=== PATIENT | male | born 1945 | race Caucasian/White ===

== ENCOUNTER → 2016-11-03 | Outpatient (CLI) | payer MEDICARE, BC, OTHER ==
[~2016-11-03] VITALS: Ht 182.9 cm; Wt 106.6 kg
[~2016-11-03] MED LIST: ASPI1TAB PO; FISH1000 PO; FLAX1000 PO; FLEC25TA PO; LIDOCAINE 2% INJ 100 MG/5 ML SDV (FOR ANES.) As Ordered ONE; NS 1,000 ML IV ONE; PRAD150C PO; PROPOFOL 500 MG/50 ML VIAL As Ordered ONE
--- NOTE | 2016-11-03 10:59 | ROOR ---
Patient Name: Basim Wang Procedure Date: 11/03/2016 10:23 AM Date of : 1945 Age: 71 Room: [facility] Gender: Male Note Status: Finalized Procedure: Total Colonoscopy to Cecum + Cold Snare Polypectomy Indications: High risk colon cancer surveillance: Personal history of colonic polyps, Last colonoscopy: 2011 Providers: Nikolas Dueñas MD Referring MD: Chen BAKER MD Requesting Provider: Medicines: Monitored Anesthesia Care Complications: No immediate complications. Procedure: Pre-Anesthesia Assessment: - The heart rate, respiratory rate, oxygen saturations, blood pressure, adequacy of pulmonary ventilation, and response to care were monitored throughout the procedure. The Colonoscope was introduced through the anus and advanced to the cecum, identified by appendiceal orifice and ileocecal valve. The colonoscopy was performed without difficulty. The patient tolerated the procedure well. The quality of the bowel preparation was good. Findings: The perianal and digital rectal examinations were normal. Non-bleeding internal hemorrhoids were found during retroflexion. The hemorrhoids were small and Grade I (internal hemorrhoids that do not prolapse). Multiple small and large-mouthed diverticula were found in the recto-sigmoid colon, sigmoid colon and descending colon. A small polyp was found in the ascending colon. The polyp was sessile. The polyp was removed with a cold snare. Resection and retrieval were complete. The exam was otherwise without abnormality on direct and retroflexion views. Impression: - Non-bleeding internal hemorrhoids. - Diverticulosis in the recto-sigmoid colon, in the sigmoid colon and in the descending colon. - One small polyp in the ascending colon, removed with a cold snare. Resected and retrieved. - The examination was otherwise normal on direct and retroflexion views. - The exam was otherwise normal to the cecum. Recommendation: - Patient has a contact number available for emergencies. The signs and symptoms of potential delayed complications were discussed with the patient. Return to normal activities tomorrow. Written discharge instructions were provided to the patient. - High fiber diet. - Discharge patient to home. - Continue present medications. - Await pathology results. - Telephone GI clinic for pathology results in 1 week. - Repeat colonoscopy for symptoms only. - Return to referring physician. - The findings and recommendations were discussed with the patient's family. Nikolas Dueñas MD Nikolas Dueñas MD 11/03/2016 10:59:08 AM This report has been signed electronically. Number of Addenda: 0 Note Initiated On: 11/03/2016 10:23 AM Estimated Blood Loss: Estimated blood loss: none.
[2016-11-03 11:19] VITALS: BP 104/77
== END | disposition home or self-care (01) ==
LOC: M OPP 09:42
PROVIDERS: ATTEND Internal Medicine Gastroenterology
DX: Z12.11 Encounter for screening for malignant neoplasm of colon (principal); K64.0 First degree hemorrhoids; K57.30 Diverticulosis of large intestine without perforation or abscess without bleeding; K63.5 Polyp of colon; I48.91 Unspecified atrial fibrillation; F33.9 Major depressive disorder, recurrent, unspecified; G47.30 Sleep apnea, unspecified; F17.290 Nicotine dependence, other tobacco product, uncomplicated; Z79.82 Long term (current) use of aspirin; J30.89 Other allergic rhinitis

== ENCOUNTER 2016-12-15 06:00 | Day surgery (SDC) | payer MEDICARE, BC, OTHER ==
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
[~2016-12-15] VITALS: Ht 185.4 cm; Wt 109.8 kg
[~2016-12-15 06:00] MED LIST changes: -LIDOCAINE 2% INJ 100 MG/5 ML SDV (FOR ANES.) As Ordered ONE; -NS 1,000 ML IV ONE; -PROPOFOL 500 MG/50 ML VIAL As Ordered ONE
[2016-12-15] MEDS ORDERED: LR 500 ML IV SCH (06:15)
[2016-12-15] MEDS ORDERED: LIDOCAINE PRES-FREE 2% 10ML AMP As Ordered ONE (06:20)
[2016-12-15] MEDS: TETRACAINE 0.5% OPHTH SOLN 4ML As Ordered ONE ×2 (06:21→07:47)
[2016-12-15] MEDS ORDERED: LIDOCAINE 2% MDV 20 ML VIAL As Ordered ONE (06:21)
[2016-12-15] MEDS ORDERED: TOBRADEX OPHTH OINT 3.5 GM As Ordered ONE (06:21)
[2016-12-15] MEDS ORDERED: POVIDONE-IODINE 5% OPHTH PREP SOL 30ML As Ordered ONE (06:21)
[2016-12-15] MEDS ORDERED: LIDOCAINE 3.5 % 1ML OPHTH TOPICAL GEL OU ONE (07:00)
[2016-12-15] MEDS ORDERED: LIDOCAINE 2% W/EPIN INJ 20ML **PRES FREE As Ordered ONE (07:25)
[2016-12-15] MEDS ORDERED: LIDOCAINE 2% INJ 100 MG/5 ML SDV (FOR ANES.) As Ordered ONE (07:38)
[2016-12-15] MEDS ORDERED: MIDAZOLAM INJ 2 MG/2 ML VIAL (J2250) As Ordered ONE (07:38)
[2016-12-15] MEDS ORDERED: PROPOFOL 200 MG/20 ML VIAL As Ordered ONE (07:38)
[2016-12-15] MEDS ORDERED: fentaNYL 100 MCG/2 ML INJECTION (J3010) As Ordered ONE (07:52)
[2016-12-15] MEDS ORDERED: diphenhydrAMINE INJ 50MG/ML VIAL (J1200) As Ordered ONE ×2 (08:01→08:02)
[2016-12-15 08:40] VITALS: BP 111/68
--- NOTE | 2016-12-16 14:04 | RO ---
DATE OF OPERATION: 12/15/2016 PREOPERATIVE DIAGNOSES: Dermatochalasis and ptosis, both eyes. POSTOPERATIVE DIAGNOSES: Dermatochalasis and ptosis, both eyes. PROCEDURE: Bilateral blepharoplasty with ptosis repair. Preoperative marginal reflex distance (MRD) was -1 mm and levator function was 12-15 mm. SURGEON: Alethea Garcia MD DISCOUNT CLERK: None. COMPLICATIONS: None. ANESTHESIA: Local intravenous (IV) standby. DESCRIPTION OF PROCEDURE: Procedure in detail: The patient was brought to the operating room and laid in supine position. The upper face was prepped and draped in a sterile fashion for bilateral lid surgery. Both upper lids were marked with the help of the sterile marker, following which the subcutaneous injection of 2% lidocaine with 1:100,000 epinephrine was given. Premarked areas were then excised with the help of the cautery. Hemostasis obtained as necessary. Attention was first diverted to the right eye after the elliptical portion of the skin was excised, hemostasis was obtained, and any prolapsed fat was then excised. Levator aponeurosis was identified and was noticed to be dehisced, and it was reattached using 6-0 nylon suture. Following this, the skin was closed using 6-0 plain gut in a running fashion. The exact same procedure was repeated for the left eye. At the end of the case, ice was applied, and the patient returned to recovery room in stable condition.
== END 2016-12-15 09:17 | disposition home or self-care (01) ==
LOC: M SDC 06:00
PROVIDERS: ATTEND Ophthalmology
DX: H02.834 Dermatochalasis of left upper eyelid (principal); H02.831 Dermatochalasis of right upper eyelid; H02.403 Unspecified ptosis of bilateral eyelids; I48.91 Unspecified atrial fibrillation; K57.30 Diverticulosis of large intestine without perforation or abscess without bleeding; K64.9 Unspecified hemorrhoids; M51.9 Unspecified thoracic, thoracolumbar and lumbosacral intervertebral disc disorder; R06.83 Snoring; G47.33 Obstructive sleep apnea (adult) (pediatric); N40.0 Benign prostatic hyperplasia without lower urinary tract symptoms; J30.2 Other seasonal allergic rhinitis; I10 Essential (primary) hypertension; E78.5 Hyperlipidemia, unspecified; R91.8 Other nonspecific abnormal finding of lung field; K76.89 Other specified diseases of liver; Z79.899 Other long term (current) drug therapy; Z79.82 Long term (current) use of aspirin; Z86.010 Personal history of colon polyps
CPT/HCPCS: 15823; 88302; J1200; J2250; J3010

== ENCOUNTER → 2017-09-09 | Outpatient (REF) | payer MEDICARE, BC, OTHER ==
[2017-09-09 12:25] LABS: PARTIAL THROMBOPLASTIN TIME 34.8 SECONDS (26.8-37.9); PROTHROMBIN TIME 14.4 SECONDS (12.4-14.5)
== END ==
LOC: M LAB REF 11:55
DX: Z01.812 Encounter for preprocedural laboratory examination (principal); Z79.01 Long term (current) use of anticoagulants; R79.9 Abnormal finding of blood chemistry, unspecified
CPT/HCPCS: 85610

== ENCOUNTER 2017-09-17 12:22 | Emergency (ER) | payer MEDICARE, BC, OTHER | END 2017-09-17 15:22 | disposition home or self-care (01) | LOC: M ED 12:22 | DX: R31.9 Hematuria, unspecified (principal); R33.9 Retention of urine, unspecified; Z96.0 Presence of urogenital implants; I25.10 Atherosclerotic heart disease of native coronary artery without angina pectoris; Z79.899 Other long term (current) drug therapy; Z79.82 Long term (current) use of aspirin; Z79.01 Long term (current) use of anticoagulants; J30.89 Other allergic rhinitis | CPT/HCPCS: 99283 ==

== ENCOUNTER 2017-09-25 20:07 | Emergency (ER) | payer MEDICARE, BC, OTHER | END 2017-09-25 21:54 | disposition home or self-care (01) | LOC: M ED 20:07 | DX: I80.01 Phlebitis and thrombophlebitis of superficial vessels of right lower extremity (principal); Z98.890 Other specified postprocedural states; I48.91 Unspecified atrial fibrillation; J30.9 Allergic rhinitis, unspecified; F17.200 Nicotine dependence, unspecified, uncomplicated; Z79.01 Long term (current) use of anticoagulants; Z79.82 Long term (current) use of aspirin | CPT/HCPCS: 93971 ==

== ENCOUNTER 2018-06-01 05:57 | Day surgery (SDC) | payer MEDICARE, BC, OTHER ==
[~2018-06-01] VITALS: Ht 185.4 cm; Wt 108.9 kg
[~2018-06-01 05:57] MED LIST changes: +ALFU10TA2; +CEPH500C; +COQ-100C2 PO; +DOCU100C16; +ELIQ5TAB; +ELIQ5TAB PO; -FLAX1000 PO; +FLAX10008 PO; +HYDR-3713; +MULT1TAB10 PO; +NAPR-50 PO; +VITA400C7 PO
[2018-06-01] MEDS ORDERED: LR 1,000 ML IV ONE (06:00)
[2018-06-01] MEDS ORDERED: PROPOFOL 200 MG/20 ML VIAL As Ordered ONE (07:03)
[2018-06-01] MEDS ORDERED: LIDOCAINE 2% INJ 100 MG/5 ML SDV (FOR ANES.) As Ordered ONE (07:03)
[2018-06-01] MEDS ORDERED: LR 1,000 ML IV SCH (08:15)
--- NOTE | 2018-06-01 08:47 | ECGEPIP ---
Stationary ECG Study [facility] Test Date: 2018-06-01 Pat Name: YOANDY REDDY Department: Room: - Gender: M Clinical Programmer: GAVIOTA : 1945 Requested By: NATALIA SESAY Order Number: [id number] Reading MD: Tena Kennedy Measurements Intervals Parks Rate: 62 P: 2 GA: 224 QRS: 25 QRSD: 121 T: 0 QT: 399 QTc: 408 Interpretive Statements SINUS RHYTHM WITH FIRST DEGREE AV BLOCK POSSIBLE LEFT ATRIAL ENLARGEMENT MODERATE INTRAVENTRICULAR CONDUCTION DELAY SINCE 03/19/18 QRS COMPLEX IS WIDER TODAY Electronically Signed On 06-01-2018 8:47:30 EST by Tena Kennedy
[2018-06-01 09:00] VITALS: BP 152/81
--- NOTE | 2018-06-01 10:30 | RO ---
DATE OF PROCEDURE: 06/01/2018 PREPROCEDURE DIAGNOSIS: Atrial fibrillation. POSTPROCEDURE DIAGNOSIS: Atrial fibrillation, cardioverted to a normal sinus rhythm with DC cardioversion. PROCEDURE: DC mechanical cardioversion. SURGEON: Dr. Dwaine Martinez IT APPLICATIONS DEVELOPER: Saúl Anesthesiologist. ANESTHESIOLOGIST: Saúl Anesthesiologist. ESTIMATED BLOOD LOSS: Mr. Basim Wang is a 72-year-old male with a history of atrial fibrillation and prior mechanical cardioversion because be is symptomatic with fatigue and shortness of breath with activities. The last time he was mechanically cardioverted was in 2013. Last year, he was found to be in atrial fibrillation and upon his request, he was brought down today for DC mechanical cardioversion. Propofol 120 mg IV was given by Saúl anesthesiologist and he was promptly mechanically cardioverted with one shock of biphasic synchronized 200 joules with the defibrillator patches applied to the apex and the right upper chest. This led to resolution to a normal sinus rhythm and at the time of dictation, patient is in normal sinus rhythm. Vital signs are stable, and his EKG reveals normal sinus rhythm with first degree AV block, possible left atrial abnormality and mild IVCD. He tolerated the procedure very well without any complications. Prior to the procedure and as outpatient, the risks and possible complications were explained to him including but not limited to aspiration pneumonia, myocardial infarction, cardiac arrhythmias, and and detailed were explained to him, and all questions were answered. He had agreed to proceed. On physical examination at this present time, patient is alert and oriented, in no acute distress at rest and very pleasant. His latest blood pressure was about 115/75 with a pulse of 62, respiration 18. He is alert, awake and oriented. His oxygen saturation is 98%. His lungs are clear bilaterally on auscultation and there is no focal manifestation on physical examination. Mr. Basim Wang is stable status post cardioversion. He will be monitored and discharged home later this morning. His is aware of the success of the procedure. He will be called and an appointment will be given to him. He will continue to follow with his primary, Dr. Chen Reddy.
== END 2018-06-01 09:25 | disposition home or self-care (01) ==
LOC: M SDC 05:57
PROVIDERS: ATTEND Internal Medicine Cardiovascular Disease
DX: I48.91 Unspecified atrial fibrillation (principal); K57.30 Diverticulosis of large intestine without perforation or abscess without bleeding; M54.9 Dorsalgia, unspecified; R06.83 Snoring; G47.33 Obstructive sleep apnea (adult) (pediatric); N40.0 Benign prostatic hyperplasia without lower urinary tract symptoms; J30.89 Other allergic rhinitis; Z79.899 Other long term (current) drug therapy; Z79.01 Long term (current) use of anticoagulants

== ENCOUNTER → 2018-08-12 | Outpatient (CLI) | payer MEDICARE, BC, OTHER ==
[~2018-08-12] MED LIST changes: -ASPI1TAB PO; +ASPI81TA26 PO; -NAPR-50 PO; +NAPR-837 PO; -PRAD150C PO; +PRAD150C6 PO
[2018-08-12 18:02] LABS: ALT/SGPT 47 U/L (12-78); BILIRUBIN,TOTAL 0.8 MG/DL (0.2-1.0); BLOOD UREA NITROGEN 14 MG/DL (7-18); CALCIUM LEVEL 9.6 MG/DL (8.8-10.2); CARBON DIOXIDE LEVEL 28 MEQ/L (21-32); CHLORIDE LEVEL 103 MEQ/L (98-107); CHOLESTEROL LEVEL 193 MG/DL (<200); CHOLESTEROL RISK RATIO 3.641 (<5); CREATININE FOR GFR 1.02 MG/DL (0.70-1.30); GLOMERULAR FILTRATION RATE > 60.0 (>42); GLUCOSE, FASTING 75 MG/DL (70-100); HDL CHOLESTEROL 53 MG/DL (>40); LDL CHOLESTEROL 114 MG/DL (<100); NON-HDL-C 140 MG/DL; POTASSIUM SERUM 4.7 MEQ/L (3.5-5.1); SODIUM LEVEL 138 MEQ/L (136-145); TOTAL PROTEIN 6.4 GM/DL (6.4-8.2); TRIGLYCERIDES LEVEL 132 MG/DL (<150); TROPONIN I < 0.02 NG/ML (< 0.10)
== END ==
LOC: M SMT 12:07
PROVIDERS: ATTEND Internal Medicine Cardiovascular Disease
DX: R07.9 Chest pain, unspecified (principal)

== ENCOUNTER → 2020-02-02 | Outpatient (CLI) | payer BC, OTHER ==
[~2020-02-02] MED LIST changes: +ACE65ERTAB; +ALBU90AE; -ALFU10TA2; +ALFU10TA3; +AMIT25TA; +ATOR1TAB21; +CLOP75TA2; +FAMO40TA3; +FLUTISP; +MUCI600T31; +PRAV10TA3
[2020-02-02 14:21] LABS: BLOOD UREA NITROGEN 17 MG/DL (7-18); CREATININE FOR GFR 1.02 MG/DL (0.70-1.30); GLOMERULAR FILTRATION RATE > 60.0 (>42)
== END ==
LOC: M LAB 12:40
PROVIDERS: ATTEND Surgery
DX: K40.90 Unilateral inguinal hernia, without obstruction or gangrene, not specified as recurrent (principal)

== ENCOUNTER → 2020-02-09 | Outpatient (CLI) | payer MEDICARE, BC, OTHER ==
[~2020-02-09] MED LIST changes: +ISOVUE-370 76% 100ML VIAL As Ordered ONE
--- NOTE | 2020-02-09 15:05 | REP ---
INDICATION: UNIL ING HERNIA,W /O OBST. COMPARISON: None. TECHNIQUE: Axial contrast-enhanced images of the pelvis with coronal and sagittal reformations using 100 cc Isovue 370 intravenous contrast material. FINDINGS: There is a moderate right inguinal hernia which contains nonobstructed loops of small bowel and mesenteric fat. Remainder of the visualized small and large bowel is grossly unremarkable. No pelvic fluid. No free air. No adenopathy. Vascular structures are intact and normal. Bladder is unremarkable. Chronic changes to the prostate gland include parenchymal calcifications and mild prostatomegaly. Visualized osseous structures demonstrate age-related degenerative changes. IMPRESSION: Moderate right inguinal hernia containing nonobstructed loops of small bowel and mesenteric fat. <Electronically signed by Landon Plata > 02/09/20 [id number]
== END ==
LOC: M RAD 14:04
PROVIDERS: ATTEND Surgery
DX: K40.90 Unilateral inguinal hernia, without obstruction or gangrene, not specified as recurrent (principal)
CPT/HCPCS: 72193; Q9967

== ENCOUNTER → 2020-02-29 | Outpatient (CLI) | payer MEDICARE, BC, OTHER ==
[~2020-02-29] MED LIST changes: -ISOVUE-370 76% 100ML VIAL As Ordered ONE
== END ==
LOC: M LABSMTC 12:47
PROVIDERS: ATTEND Anesthesiology
DX: Z01.812 Encounter for preprocedural laboratory examination (principal); Z20.828 Contact with and (suspected) exposure to other viral communicable diseases
CPT/HCPCS: C9803; U0003

== ENCOUNTER 2020-03-05 06:23 | Day surgery (SDC) | payer MEDICARE, BC, OTHER ==
[~2020-03-05] VITALS: Ht 185.4 cm; Wt 108.0 kg
[~2020-03-05 06:23] MED LIST changes: +LIDOCAINE 1% MDV 20ML VIAL SQ PRN; +LR 1,000 ML IV ONE; +ceFAZolin SOD 1 GM in D5W MINI-BAG PLUS 50 ML IV ONE
[2020-03-05] MEDS ORDERED: LIDOCAINE W/EPINEPHRINE 1% 20ML VIAL As Ordered ONE (08:22)
[2020-03-05] MEDS ORDERED: BUPIVACAINE HCL 0.25% 10ML VIAL As Ordered ONE (08:22)
[2020-03-05] MEDS ORDERED: fentaNYL 250 MCG/5 ML INJECTION (J3010) As Ordered ONE (08:54)
[2020-03-05] MEDS ORDERED: ROCURONIUM BROMIDE 50 MG/5 ML VIAL As Ordered ONE ×2 (08:54→09:14)
[2020-03-05] MEDS ORDERED: LIDOCAINE 2% 100MG/5ML SDV (FOR ANES.) As Ordered ONE (08:54)
[2020-03-05] MEDS ORDERED: propofoL 200 MG/20 ML VIAL As Ordered ONE (08:54)
[2020-03-05] MEDS ORDERED: MIDAZOLAM INJ 2MG/2ML VIAL (J2250 PER 1MG) As Ordered ONE (08:54)
[2020-03-05] MEDS ORDERED: PHENYLephrine HCL 500 MCG/5 ML (100MCG/ML) SYRINGE (J2370) As Ordered ONE (08:54)
[2020-03-05] MEDS ORDERED: dexameTHASONE 4 MG/ML 1ML VIAL (J1100 PER 1MG) As Ordered ONE (08:54)
[2020-03-05] MEDS ORDERED: KETOROLAC 60MG 2ML VIAL As Ordered ONE (09:16)
[2020-03-05] MEDS ORDERED: SUGAMMADEX SODIUM 500 MG/5 ML VIAL (BRIDION) As Ordered ONE (09:16)
[2020-03-05] MEDS ORDERED: ONDANSETRON 4MG/2ML VIAL As Ordered ONE (09:19)
[2020-03-05] MEDS ORDERED: ONDANSETRON 4MG/2ML VIAL IV PRN ×2 (10:30→10:45)
[2020-03-05] MEDS ORDERED: fentaNYL 100 MCG/2 ML INJECTION (J3010) IV PRN (10:30)
[2020-03-05] MEDS ORDERED: METOCLOPRAMIDE INJ 10MG/2ML VIAL (J2765 PER 1) IV PRN (10:30)
[2020-03-05] MEDS ORDERED: PERCOCET 5MG/325MG TAB PO PRN (10:30)
[2020-03-05] MEDS ORDERED: LR 1,000 ML IV SCH (10:30)
[2020-03-05] MEDS ORDERED: NS 1,000 ML IV SCH (10:45)
[2020-03-05] MEDS ORDERED: NORCO, ANEXSIA 5/325MG TABLET (HYDROcodone/ACETAMINOPHEN) PO PRN (10:45)
[2020-03-05 12:15] VITALS: BP 140/82
--- NOTE | 2020-03-05 15:00 | RO ---
DATE OF OPERATION: 03/05/2020 PREOPERATIVE DIAGNOSIS: Right inguinal hernia. POSTOPERATIVE DIAGNOSIS: Right inguinal hernia (indirect). PROCEDURE: Robotic-assisted laparoscopic right inguinal hernia repair with ProGrip mesh. SURGEON: Ryland Morgan M.D. MANAGER BUSINESS INFORMATION: VIDAL Walker, who provided retraction, exposure, instrument exchange, abdominal wall closure. ESTIMATED BLOOD LOSS: Minimal. FLUIDS: Crystalloid. ANESTHESIA: General endotracheal anesthesia. DISPOSITION: The patient was awake and extubated and brought to the recovery room awake, alert, and hemodynamically stable condition. BRIEF PROCEDURE SUMMARY: The patient was brought to the operating room and was given general anesthesia. After adequate anesthesia and preoperative antibiotics were given, the patient was prepped and draped in the usual sterile fashion. Next, a supraumbilical incision was made with the skin knife. Blunt dissection was carried down to the fascia and fascia was entered with a Veress needle and insufflated to 15 mm of pressure. A dilating 8-mm trocar was placed and under direct visualization, two lateral 8-mm trocars were placed. The camera was docked. The patient was placed in Trendelenburg position. The peritoneum overlying the right hand side was taken down with monopolar cut scissors. The patient had a previous ZABRINA repair and thus there was a lot of scar tissue within the preperitoneal space and mostly over the bladder area, but even extended over to the right inguinal area. But, in any case, the peritoneum was taken down with a combination of blunt dissection and sharp dissection, as well as electrocautery. This was mobilized off of the epigastrics, the vessels, and one this was done, mobilized quite nicely. There still was a component of the sac that went medial to the vessels. Once I was able to mobilize this further off of the vessels and iliac vessels and down the Gage's ligament area, then a ProGrip mesh was cut to the appropriate size, placed in the preperitoneal space, and pressed into position. The peritoneum was closed over the top of this with a running 3-0 V-Loc. All trocars were removed under direct visualization. Then, 4- 0 Vicryl was used to close all skin incisions. Steri-Strips and a dry sterile dressing were applied. The patient was awakened, extubated, and brought to the recovery room awake, alert, and hemodynamically stable. Sponge and needle counts were correct x2. MTDD
== END 2020-03-05 12:33 | disposition home or self-care (01) ==
LOC: M SDC 06:23
PROVIDERS: ATTEND Surgery
DX: K40.90 Unilateral inguinal hernia, without obstruction or gangrene, not specified as recurrent (principal); I48.91 Unspecified atrial fibrillation; E78.49 Other hyperlipidemia; G47.33 Obstructive sleep apnea (adult) (pediatric); Z79.01 Long term (current) use of anticoagulants; Z79.899 Other long term (current) drug therapy; N40.0 Benign prostatic hyperplasia without lower urinary tract symptoms
CPT/HCPCS: 49650; C1781; J0690; J1100; J1885; J2250; J2370; J2405; J3010; S2900

== ENCOUNTER 2020-04-12 12:52 | Emergency (ER) | payer MEDICARE, BC, OTHER ==
[~2020-04-12] VITALS: Ht 185.4 cm; Wt 114.1 kg
[~2020-04-12 12:52] MED LIST changes: -LIDOCAINE 1% MDV 20ML VIAL SQ PRN; -LR 1,000 ML IV ONE; -ceFAZolin SOD 1 GM in D5W MINI-BAG PLUS 50 ML IV ONE
--- NOTE | 2020-04-12 14:00 | REP ---
INDICATION: CHEST PAIN. COMPARISON: 05/18/2016. TECHNIQUE: Single AP view of the chest performed portably with the patient sitting. FINDINGS: The lung riggs are clear. Cardiac size is normal. The blair, mediastinum and skeletal structures are unremarkable. IMPRESSION: Essentially negative portable chest <Electronically signed by Lul Cotter > 04/12/20 [id number]
[2020-04-12 14:09] LABS: BASO % 0.4 % (0.0-1.0); EOS # 0.2 10^3/uL (0.0-0.5); EOS % 2.6 % (0.0-3.0); HEMATOCRIT 47.6 % (42.0-52.0); HEMOGLOBIN 15.4 g/dl (13.5-17.5); LYMPH # 1.3 10^3/uL (1.5-5.0); MEAN CORPUSCULAR HEMOGLOBIN 27.2 pg (27.0-33.0); MEAN CORPUSCULAR HGB CONC 32.4 g/dl (32.0-36.5); MEAN CORPUSCULAR VOLUME 84.1 fl (80.0-96.0); MONO # 0.7 10^3/uL (0.0-0.8); MONO % 9.8 % (0.0-5.0); NEUTROPHILS # 4.6 10^3/uL (1.5-8.5); NEUTROPHILS % 67.5 % (36.0-66.0); PLATELET COUNT, AUTOMATED 200 10^3/uL (150-450); RED BLOOD COUNT 5.66 10^6/uL (4.30-6.10); WHITE BLOOD COUNT 6.8 10^3/uL (4.0-10.0)
[2020-04-12 14:20] LABS: INR 1.16; PROTHROMBIN TIME 15.1 SECONDS (12.5-14.3)
[2020-04-12 14:21] LABS: PARTIAL THROMBOPLASTIN TIME 35.8 SECONDS (24.2-38.5)
[2020-04-12 14:51] LABS: ALBUMIN 3.8 GM/DL (3.2-5.2); ALT/SGPT 38 U/L (12-78); BILIRUBIN,DIRECT 0.3 MG/DL (0.0-0.2); BILIRUBIN,TOTAL 1.2 MG/DL (0.2-1.0); BLOOD UREA NITROGEN 12 MG/DL (7-18); CARBON DIOXIDE LEVEL 28 MEQ/L (21-32); CHLORIDE LEVEL 106 MEQ/L (98-107); CK-MB VALUE MASS 4.2 NG/ML (<3.6); CPK CREATINE PHOSPHOKINASE 190 U/L (39-308); CREATININE FOR GFR 0.95 MG/DL (0.70-1.30); GLOMERULAR FILTRATION RATE > 60.0 (>42); GLUCOSE, FASTING 92 MG/DL (70-100); LIPASE 63 U/L (73-393); MB/CK RELATIVE INDEX 2.21 (< OR =4); NT-PRO BNP 735 PG/ML (<125); POTASSIUM SERUM 4.7 MEQ/L (3.5-5.1); SODIUM LEVEL 139 MEQ/L (136-145); TOTAL PROTEIN 6.3 GM/DL (6.4-8.2); TROPONIN I < 0.02 NG/ML (< 0.10)
[2020-04-12 15:40] VITALS: BP 132/96
--- NOTE | 2020-04-14 12:15 | ECGEPIP ---
[facility] - ED Test Date: 2020-04-12 Pat Name: YOANDY REDDY Department: Room: - Gender: Male Micropaleontologist: : 1945 Requested By: ISELA DRAKE Order Number: [id number] Reading MD: Lavonne Del Real Measurements Intervals Comfort Rate: 67 P: DC: 0 QRS: 23 QRSD: 113 T: -6 QT: 369 QTc: 392 Interpretive Statements ATRIAL FIBRILLATION MODERATE INTRAVENTRICULAR CONDUCTION DELAY ABNORMAL RHYTHM ECG 06/01/18 SINUS Electronically Signed on 04-14-2020 12:14:36 EST by Lavonne Del Real
[2020-04-16 01:06] LABS: FLECAINIDE LEVEL 0.11 ug/mL (0.20-1.00)
== END 2020-04-12 15:55 | disposition home or self-care (01) ==
LOC: M ED 12:52
DX: I48.91 Unspecified atrial fibrillation (principal); M79.602 Pain in left arm; I10 Essential (primary) hypertension; E78.5 Hyperlipidemia, unspecified; N40.0 Benign prostatic hyperplasia without lower urinary tract symptoms; J30.89 Other allergic rhinitis; Z79.899 Other long term (current) drug therapy; Z79.01 Long term (current) use of anticoagulants
CPT/HCPCS: 36415; 71045; 80048; 80076; 82550; 82553; 83690; 83880; 84443; 84484; 85025; 85610; 85730; 93005; 93041; 94760; 99285; G0480

== ENCOUNTER → 2021-03-10 | Outpatient (REF) | payer MEDICARE, BC, OTHER ==
[~2021-03-10] MED LIST changes: -AMIT25TA; +AMIT25TA17
== END ==
LOC: M LAB REF 12:34
PROVIDERS: ATTEND Internal Medicine
DX: E83.52 Hypercalcemia (principal)

== ENCOUNTER → 2021-05-09 | Outpatient (CLI) | payer MEDICARE, BC, OTHER | LOC: M RAD 14:28 | PROVIDERS: ATTEND Internal Medicine Pulmonary Disease | DX: R91.8 Other nonspecific abnormal finding of lung field (principal) ==

== ENCOUNTER 2021-07-17 13:53 | Emergency (ER) | payer MEDICARE, BC, OTHER ==
[~2021-07-17] VITALS: Ht 185.4 cm; Wt 102.1 kg
[2021-07-17 13:53] VITALS: BP 154/83
[2021-07-17] MEDS ORDERED: AMOX875T2 (14:03)
== END 2021-07-17 15:57 | disposition home or self-care (01) ==
LOC: M ED 13:53
DX: S00.03XA Contusion of scalp, initial encounter (principal); W22.8XXA Striking against or struck by other objects, initial encounter; Y92.018 Other place in single-family (private) house as the place of occurrence of the external cause; I48.91 Unspecified atrial fibrillation; J30.89 Other allergic rhinitis; Z79.899 Other long term (current) drug therapy; Z79.01 Long term (current) use of anticoagulants

== ENCOUNTER → 2021-09-23 | Outpatient (CLI) | payer MEDICARE, BC, OTHER ==
[~2021-09-23] MED LIST changes: +AMOX875T2
[2021-09-23 20:58] LABS: CALCIUM LEVEL 10.2 MG/DL (8.8-10.2); PHOSPHORUS LEVEL 3.4 MG/DL (2.5-4.9)
== END ==
LOC: M WUC 15:24
PROVIDERS: ATTEND Internal Medicine Endocrinology, Diabetes & Metabolism
DX: E83.52 Hypercalcemia (principal)

== ENCOUNTER → 2022-06-03 | Outpatient (CLI) | payer MEDICARE, BC, OTHER ==
[~2022-06-03] MED LIST changes: +ALLE10TA32 PO; +BUSP10TA PO; +COQ1200C3 PO; +DOXY20TA4 PO; +KP F1200 PO; +RAMI1CAP21 PO
== END ==
LOC: M LABSMTC 09:28
PROVIDERS: ATTEND Anesthesiology
DX: Z01.812 Encounter for preprocedural laboratory examination (principal); Z11.52 Encounter for screening for COVID-19

== ENCOUNTER 2022-06-08 07:40 | Day surgery (SDC) | payer MEDICARE, BC, OTHER ==
[~2022-06-08] VITALS: Ht 185.4 cm; Wt 102.9 kg
[~2022-06-08 07:40] MED LIST changes: +NS 1,000 ML IV ONE
[2022-06-08] MEDS ORDERED: LIDOCAINE 2% 100MG/5ML SDV (FOR ANES.) As Ordered ONE (10:57)
[2022-06-08] MEDS ORDERED: propofoL 200 MG/20 ML VIAL As Ordered ONE ×2 (10:57→11:11)
[2022-06-08 11:46] VITALS: BP 108/65
== END 2022-06-08 12:15 | disposition home or self-care (01) ==
LOC: M OPP 07:40
PROVIDERS: ATTEND Internal Medicine Gastroenterology
DX: Z12.11 Encounter for screening for malignant neoplasm of colon (principal); Z86.010 Personal history of colon polyps; D12.6 Benign neoplasm of colon, unspecified; K64.0 First degree hemorrhoids; K57.30 Diverticulosis of large intestine without perforation or abscess without bleeding; I48.91 Unspecified atrial fibrillation; G47.30 Sleep apnea, unspecified; Z99.89 Dependence on other enabling machines and devices; Z79.01 Long term (current) use of anticoagulants; Z79.02 Long term (current) use of antithrombotics/antiplatelets; Z79.82 Long term (current) use of aspirin; Z79.899 Other long term (current) drug therapy

== ENCOUNTER → 2023-01-06 | Outpatient (CLI) | payer MEDICARE, BC, OTHER ==
[~2023-01-06] MED LIST changes: -AMIT25TA17; +AMIT25TA19; +FLUT50SP17; -FLUTISP; -NS 1,000 ML IV ONE
== END ==
LOC: M PLAIMG 07:37
PROVIDERS: ATTEND Nurse Practitioner
DX: M51.26 Other intervertebral disc displacement, lumbar region (principal); G89.29 Other chronic pain; M51.36 Other intervertebral disc degeneration, lumbar region; M48.062 Spinal stenosis, lumbar region with neurogenic claudication; M47.816 Spondylosis without myelopathy or radiculopathy, lumbar region

== ENCOUNTER → 2023-06-25 | Outpatient (CLI) | payer MEDICARE, BC, OTHER ==
[~2023-06-25] MED LIST changes: -FLUT50SP17; +FLUTISP
[2023-06-25 16:32] LABS: ALBUMIN 3.6 G/DL (3.2-5.2); BILIRUBIN,DIRECT 0.6 MG/DL (<0.4); BILIRUBIN,TOTAL 1.4 MG/DL (0.3-1.2); TOTAL PROTEIN 5.9 G/DL (5.7-8.2)
== END ==
LOC: M PLALAB 12:57
PROVIDERS: ATTEND Podiatrist
DX: Z51.81 Encounter for therapeutic drug level monitoring (principal); Z79.899 Other long term (current) drug therapy

== ENCOUNTER → 2023-11-11 | Outpatient (REF) | payer MEDICARE, BC, OTHER ==
[~2023-11-11] MED LIST changes: -ALBU90AE; +ALBU90AE2; +ALFU10TA23; -ALFU10TA3; -DOXY20TA4 PO; +DOXY20TA6 PO; +RAMI1.258 PO; -RAMI1CAP21 PO
== END ==
LOC: M LAB REF 16:32
PROVIDERS: ATTEND Internal Medicine
DX: E83.52 Hypercalcemia (principal)

== ENCOUNTER → 2024-03-26 | Outpatient (REF) | payer MEDICARE, BC, OTHER ==
[2024-03-27 15:12] LABS: CALCIUM, URINE 11.8 MG/DL
[2024-03-27 15:14] LABS: CREATININE 24 HOUR, URINE 1606.5 MG/24HR (950-2500); CREATININE, URINE 35.7 MG/DL
== END ==
LOC: M LAB REF 12:35
PROVIDERS: ATTEND Nurse Practitioner Family
DX: E83.52 Hypercalcemia (principal)

== ENCOUNTER → 2024-05-17 | Outpatient (REF) | payer MEDICARE, BC, OTHER ==
[2024-05-17 14:28] LABS: BASO # 0.1 10^3/uL (0.0-0.2); BASO % 1.1 % (0.0-1.0); EOS # 0.2 10^3/uL (0.0-0.5); EOS % 2.1 % (0.0-3.0); LYMPH # 1.3 10^3/uL (1.5-5.0); LYMPH % 16.2 % (24.0-44.0); MEAN CORPUSCULAR HEMOGLOBIN 26.3 pg (27.0-33.0); MEAN CORPUSCULAR HGB CONC 32.3 g/dl (32.0-36.5); MEAN CORPUSCULAR VOLUME 81.5 fl (80.0-96.0); MONO # 0.7 10^3/uL (0.0-0.8); MONO % 9.1 % (2.0-8.0); NEUTROPHILS # 5.7 10^3/uL (1.5-8.5); NEUTROPHILS % 70.5 % (36.0-66.0); PLATELET COUNT, AUTOMATED 445 10^3/uL (150-450); WHITE BLOOD COUNT 8.1 10^3/uL (4.0-10.0)
[2024-05-17 14:30] LABS: HEMATOCRIT 60.7 % (42.0-52.0); HEMOGLOBIN 19.6 g/dl (13.5-17.5); RED BLOOD COUNT 7.45 10^6/uL (4.30-6.10)
== END ==
LOC: M LAB REF 13:14
PROVIDERS: ATTEND Internal Medicine
DX: D75.1 Secondary polycythemia (principal)

== ENCOUNTER → 2024-07-31 | Outpatient (CLI) | payer MEDICARE, BC, OTHER ==
[~2024-07-31] MED LIST changes: +METO1TAB7
== END ==
LOC: M WHC 07:43
PROVIDERS: ATTEND Internal Medicine Medical Oncology
DX: D75.1 Secondary polycythemia (principal)

== ENCOUNTER → 2024-09-12 | Outpatient (REF) | payer MEDICARE, BC, OTHER ==
[~2024-09-12] MED LIST changes: +RAMI1.258
== END ==
LOC: M LAB REF 12:19
PROVIDERS: ATTEND Internal Medicine
DX: E83.52 Hypercalcemia (principal)

== ENCOUNTER → 2024-12-04 | Outpatient (REF) | payer MEDICARE, BC, OTHER ==
[~2024-12-04] MED LIST changes: -ACE65ERTAB; +ACET-1593; +CINA30TA5; +HYDR500C3 PO; -PRAV10TA3; +PRAV10TA43
[2024-12-04 16:00] LABS: ALT/SGPT 20.0 U/L (7.0-40); AST/SGOT 25.0 U/L (<34)
== END ==
LOC: M LAB REF 14:29
PROVIDERS: ATTEND Internal Medicine
DX: Z79.01 Long term (current) use of anticoagulants (principal)